=== PATIENT | female | born 1965 | race Caucasian/White ===

== ENCOUNTER 2025-02-11 22:22 | Emergency (ER) | payer OTHER ==
[~2025-02-11] VITALS: Ht 157.5 cm; Wt 61.5 kg
[~2025-02-11 22:22] MED LIST: AVIANE1 EACH PO; HYDROCODON-ACE1 EA11 PO; MULTIVITAMINS1 EAC7 PO; NORCO 5-325 TA1 EACH PO; PRILOSEC20 MG PO; ZANTAC150 MG PO
[2025-02-11] MEDS ORDERED: HYDROCODONE BIT/ACETAMINOPHEN 5/325 MG 1 TAB HOME.PACK PO ONE (23:00)
[2025-02-11] MEDS ORDERED: HYDROCODON-ACE1 EA10 PO (23:06)
[2025-02-11 23:25] VITALS: BP 146/83
== END 2025-02-11 23:20 | disposition home or self-care (01) ==
LOC: ED 22:22
DX: S52.501A Unspecified fracture of the lower end of right radius, initial encounter for closed fracture (principal); S52.611A Displaced fracture of right ulna styloid process, initial encounter for closed fracture; F17.200 Nicotine dependence, unspecified, uncomplicated; W01.0XXA Fall on same level from slipping, tripping and stumbling without subsequent striking against object, initial encounter
CPT/HCPCS: 73110; 99283; A9270